=== PATIENT | female | born 1930 | race Two or more races ===

== ENCOUNTER 2017-11-19 20:44 | Inpatient (IN) | payer OTHER ==
[~2017-11-19] VITALS: Ht 157.5 cm; Wt 59.0 kg
--- NOTE | 2017-11-19 20:45 | NUR ---
TO BED 10 [facility] PARAMEDICS C/O NEAR SYNCOPE WHILE USING THE RESTROOM. PT HYPOTENSIVE PER EMS REPORT, GIVEN 250ML NS BOLUS. PT AAOX2 NO ACUTE DISTRESS NOTED, RESP EVEN AND UNLABORED. PT DENIES PAIN OR DISCOMFORT AT THIS TIME. PLACE PT ON CARDIAC MONITORING, CONTINUOUS POX. ER MD AT BEDSIDE TO EVAL PT WITH ORDERS RECEIVED. WILL CARRY OUT ORDERS.
[2017-11-19 21:16] LABS: BASOPHILS # (AUTO) 0.1 /CMM (0.0-0.2); BASOPHILS % (AUTO) 1.2 % (0.0-2.0); EOSINOPHILS # (AUTO) 0.2 /CMM (0.0-0.7); EOSINOPHILS % (AUTO) 3.1 % (0.0-6.0); HEMATOCRIT 37 % (33-45); HEMOGLOBIN 12.5 g/dL (11.5-14.8); LYMPHOCYTES # (AUTO) 0.9 /CMM (0.8-4.8); LYMPHOCYTES % (AUTO) 17.4 % (20.0-44.0); MEAN CORPUSCULAR HEMOGLOBIN 33 PG (26.0-33.0); MEAN CORPUSCULAR HGB CONC 34 g/dl (31.0-36.0); MEAN CORPUSCULAR VOLUME 95 fL (82-100); MONOCYTES # (AUTO) 0.3 /CMM (0.1-1.30); MONOCYTES % (AUTO) 6.4 % (2.0-12.0); NEUTROPHILS # (AUTO) 3.8 /CMM (1.8-8.9); NEUTROPHILS % (AUTO) 71.9 % (43.0-81.0); PLATELET COUNT (AUTO) 192 /CMM (150-450); RED BLOOD CELL COUNT(AUTO) 3.85 MIL/uL (4.0-5.2); WHITE BLOOD COUNT (AUTO) 5.3 K/uL (4.3-11.0)
--- NOTE | 2017-11-19 21:24 | NUR ---
RADDIOLOGY AT BEDSIDE FOR CHEST XRAY.
[2017-11-19 21:26] LABS: CALCIUM, SERUM 8.7 mg/dL (8.5-10.1); CARBON DIOXIDE 26 mmol/L (21-32); CHLORIDE 101 mmol/L (98-107); CREATININE 0.8 mg/dL (0.6-1.3); GLUCOSE 107 mg/dL (74-106); POTASSIUM 4.2 mmol/L (3.5-5.1); SODIUM SERUM 133 mmol/L (136-145); UREA NITROGEN, BLOOD 17 mg/dL (7-18)
[2017-11-19] MEDS ORDERED: IV NS 0.9% 500 ML BAG IV ONE (21:30)
[2017-11-19 21:35] LABS: TROPONIN I < 0.017 ng/mL (0.00-0.056)
--- NOTE | 2017-11-19 22:02 | NUR ---
PT RESTING IN BED. ON MONITOR W/ STABLE VITALS. WILL CONTINUE TO MONITOR.
--- NOTE | 2017-11-19 22:03 | NUR ---
DR BISHOP AT BEDSIDE FOR EVAL.
[2017-11-19 22:14] LABS: BAND % (MANUAL) 7 % (0.0-5.0); EOSINOPHILS % (MANUAL) 2 % (0-4); LYMPHOCYTES % (MANUAL) 13 % (16-48); MONOCYTES % (MANUAL) 9 % (0-11.0); NEUTROPHILS % (MANUAL) 68 (42-76); REACTIVE LYMPHOCYTES 1 % (0-0)
--- NOTE | 2017-11-19 22:30 | NUR ---
CALLED [facility], WAITING FOR A CALL FROM A [place]
--- NOTE | 2017-11-19 22:39 | NUR ---
JOSE MANUEL HUBBARD CALLED, ON THE PHONE WITH DR BISHOP.
[2017-11-20] VITALS (8 sets, daily range): BP systolic 131–180; BP diastolic 63–81
--- NOTE | 2017-11-20 | NUR ---
REPORT GIVEN TO ASTRID MINAYA. PT AWAITING TRANSFER TO FLOOR.
[2017-11-20] MEDS ORDERED: ACET-868 PO (00:11)
[2017-11-20] MEDS ORDERED: SERT25TA PO (00:11)
[2017-11-20] MEDS ORDERED: ATEN25TA PO (00:11)
[2017-11-20] MEDS ORDERED: ASPI-605 PO (00:11)
--- NOTE | 2017-11-20 01:20 | NUR ---
RN OPEN NOTES RECEIVED PATIENT FROM ER AWAKE IN BED WITH FAMILY AT BEDSIDE. A/O X2-3. NO SIGNS OF DISTRESS OR DISCOMFORT. BREATHING EVEN AND UNLABORED. IV ACCESS IN LFA PATENT AND INTACT, NO SIGNS OF REDNESS OR INFILTRATION. ORIENTED PATIENT TO UNIT AND ROOM. BED IN LOW LOCKED POSITION WITH SIDE RAILS X3. CALL LIGHT WITHIN REACH. WILL CONTINUE TO MONITOR.
[2017-11-20] MEDS ORDERED: ENOXAPARIN SODIUM 40 MG/0.4 ML DISP.SYRIN SQ SCH (03:30)
[2017-11-20] MEDS ORDERED: MAGNESIUM HYDROXIDE 30 ML UDC PO PRN (04:00)
[2017-11-20] MEDS ORDERED: Z GUARD REMEDY 2 OZ OINT TP PRN (04:00)
[2017-11-20] MEDS ORDERED: HYDROCODONE/APAP 5/325MG 1 EACH TABLET PO PRN (04:00)
[2017-11-20] MEDS ORDERED: ONDANSETRON HCL/PF 4 MG/2 ML VIAL IVP PRN (04:00)
[2017-11-20] MEDS ORDERED: ZOLPIDEM TARTRATE 5 MG TABLET PO PRN (04:00)
[2017-11-20] MEDS ORDERED: ACETAMINOPHEN 325 MG TABLET PO PRN (04:00)
[2017-11-20 04:29] LABS: BASOPHILS % (AUTO) 0.3 % (0.0-2.0); EOSINOPHILS % (AUTO) 1.4 % (0.0-6.0); HEMATOCRIT 34 % (33-45); MEAN CORPUSCULAR HEMOGLOBIN 34 PG (26.0-33.0); MEAN CORPUSCULAR HGB CONC 35 g/dl (31.0-36.0); MEAN CORPUSCULAR VOLUME 96 fL (82-100); MONOCYTES # (AUTO) 0.4 /CMM (0.1-1.30); MONOCYTES % (AUTO) 10.9 % (2.0-12.0); NEUTROPHILS # (AUTO) 2.1 /CMM (1.8-8.9); NEUTROPHILS % (AUTO) 60.4 % (43.0-81.0); PLATELET COUNT (AUTO) 189 /CMM (150-450); RDW COEFFICIENT OF VARIATION 11.9 (11.5-15.0); RED BLOOD CELL COUNT(AUTO) 3.56 MIL/uL (4.0-5.2); WHITE BLOOD COUNT (AUTO) 3.5 K/uL (4.3-11.0)
[2017-11-20 04:55] LABS: CALCIUM, SERUM 8.4 mg/dL (8.5-10.1); CARBON DIOXIDE 27 mmol/L (21-32); CHLORIDE 101 mmol/L (98-107); CREATININE 0.6 mg/dL (0.6-1.3); GLUCOSE 90 mg/dL (74-106); MAGNESIUM 1.8 mg/dL (1.8-2.4); PHOSPHORUS 3.3 mg/dL (2.5-4.9); POTASSIUM 3.8 mmol/L (3.5-5.1); SODIUM SERUM 135 mmol/L (136-145); UREA NITROGEN, BLOOD 15 mg/dL (7-18)
[2017-11-20 04:58] LABS: CHOLESTEROL 131 mg/dL (<200); HDL CHOLESTEROL 51 mg/dL (40-60); LDL 72 mg/dL (0-99); TRIGLYCERIDES 67 mg/dL (30-150)
--- NOTE | 2017-11-20 06:40 | NUR ---
RN CLOSING NOTES PATIENT RESTING IN BED, EASILY AROUSABLE. A/O X2-3. NO SIGNS OF DISTRESS OR DISCOMFORT. BREATHING EVEN AND UNLABORED. IV ACCESS IN LFA PATENT AND INTACT, NO SIGNS OF REDNESS OR INFILTRATION. ALL NEEDS MET. NO SIGNIFICANT CHANGES THROUGH THE NIGHT. BED IN LOW LOCKED POSITION WITH SIDE RAILS X3. CALL LIGHT WITHIN REACH. WILL ENDORSE TO AM SHIFT FOR YON.
--- NOTE | 2017-11-20 07:30 | NUR ---
TELE/RN OPENING NOTE PATIENT RECEIVED IN BED AWAKE. ALERT AND ORIENTED X2. REDIRECTION AND REORIENTATION PROVDIED. RESPIRATION REGULAR AND UNLABORED. DENIES SOB, PAIN AT THIS TIME. IN NO APPARENT DISTRESS. LFA G18 PATENT. SIDE RAIL X2 UP. BED LOW AND LOCKED. CALL LIGHT WITHIN REACH. WILL CONTINUE TO MONITOR.
[2017-11-20] MEDS: ATENOLOL 25 MG TABLET PO SCH (09:27)
[2017-11-20] MEDS: ASPIRIN EC 81 MG TABLET.DR PO SCH (09:27)
[2017-11-20] MEDS: ACETAMINOPHEN 325 MG TABLET PO SCH ×3 (09:28→16:47)
[2017-11-20] MEDS: ENOXAPARIN SODIUM 40 MG/0.4 ML DISP.SYRIN SQ SCH (09:29)
[2017-11-20] MEDS ORDERED: SERTRALINE HCL 25 MG TABLET PO SCH (18:00)
--- NOTE | 2017-11-20 18:09 | NUR ---
MS/RN CLOSING NOTE PATIENT AWAKE, ALERT AND ORIENTED X3 WITH EPISODES OF FORGETFULNESS. REMINDERS PROVIDED. RESPIRATION REGULAR AND UNLABORED. DENIES SOB, PAIN AT THIS TIME. IN NO APPARENT DISTRESS AT THIS TIME. GOOD AND GENTLE SKIN CARE RENDERED. KEPT CLEAN, DRY AND COMFORTABLE. MAMI BEING UP ON CHAIR, DAUGHTER BY THE BEDSIDE. ASSIST BACK TO BED DINNER TIME. SIDE RAIL X2 UP. BED LOW AND LOCKED. ALARM ON. CALL LIGHT WITHIN REACH. WILL ENDORSE TO ANALYSIS MGR.
--- NOTE | 2017-11-20 19:30 | NUR ---
RN OPEN NOTES RECEIVED PATIENT AWAKE IN BED. A/O X2-3. NO SIGNS OF DISTRESS OR DISCOMFORT. BREATHING EVEN AND UNLABORED. IV ACCESS IN LFA PATENT AND INTACT, NO SIGNS OF REDNESS OR INFILTRATION. BED IN LOW LOCKED POSITION WITH SIDE RAILS X3. CALL LIGHT WITHIN REACH. WILL CONTINUE TO MONITOR.
--- NOTE | 2017-11-21 07:35 | NUR ---
RN OPENING NOTES RECEIVED PT. PT IS STABLE AND RESTING IN BED. A/OX3 HOWEVER PT APPEARS TO HAVE A FLAT AFFECT. NO S/S OF RESPIRATORY DISTRESS OR SOB. PT DENIES PAIN AT THIS TIME. PER MD NOTE, PT MAY BE DC TODAY 11/21/17. WILL CONTINUE TO MONITOR.
[2017-11-21 07:45] LABS: BASOPHILS % (AUTO) 0.6 % (0.0-2.0); EOSINOPHILS # (AUTO) 0.2 /CMM (0.0-0.7); EOSINOPHILS % (AUTO) 5.1 % (0.0-6.0); HEMATOCRIT 36 % (33-45); HEMOGLOBIN 12.4 g/dL (11.5-14.8); LYMPHOCYTES # (AUTO) 0.6 /CMM (0.8-4.8); LYMPHOCYTES % (AUTO) 16.6 % (20.0-44.0); MEAN CORPUSCULAR HEMOGLOBIN 34 PG (26.0-33.0); MEAN CORPUSCULAR HGB CONC 35 g/dl (31.0-36.0); MEAN CORPUSCULAR VOLUME 97 fL (82-100); MONOCYTES # (AUTO) 0.3 /CMM (0.1-1.30); MONOCYTES % (AUTO) 9.3 % (2.0-12.0); NEUTROPHILS # (AUTO) 2.4 /CMM (1.8-8.9); NEUTROPHILS % (AUTO) 68.4 % (43.0-81.0); PLATELET COUNT (AUTO) 200 /CMM (150-450); RDW COEFFICIENT OF VARIATION 12.8 (11.5-15.0); WHITE BLOOD COUNT (AUTO) 3.5 K/uL (4.3-11.0)
[2017-11-21 08:00] VITALS: BP 174/69
[2017-11-21 08:42] LABS: CALCIUM, SERUM 8.7 mg/dL (8.5-10.1); CARBON DIOXIDE 27 mmol/L (21-32); CHLORIDE 101 mmol/L (98-107); CREATININE 0.6 mg/dL (0.6-1.3); GLUCOSE 88 mg/dL (74-106); MAGNESIUM 1.8 mg/dL (1.8-2.4); PHOSPHORUS 3.1 mg/dL (2.5-4.9); POTASSIUM 3.8 mmol/L (3.5-5.1); SODIUM SERUM 135 mmol/L (136-145); UREA NITROGEN, BLOOD 9 mg/dL (7-18)
[2017-11-21 09:41] VITALS: BP 174/69
[2017-11-21] MEDS: ASPIRIN EC 81 MG TABLET.DR PO SCH (09:41)
[2017-11-21] MEDS: ATENOLOL 25 MG TABLET PO SCH (09:41)
[2017-11-21] MEDS: ACETAMINOPHEN 325 MG TABLET PO SCH (09:42)
[2017-11-21] MEDS: ENOXAPARIN SODIUM 40 MG/0.4 ML DISP.SYRIN SQ SCH (10:00)
--- NOTE | 2017-11-21 13:25 | NUR ---
BATTERY MECHANIC NOTE PT DISCHARGED TO [facility]. VSS, NO S/S OF SOB OR RESPIRATORY DISTRESS, PT DENIES ANY PAIN. DISCHARGE INSTRUCTIONS REVIEWED WITH PT AND DAUGHTER, SIGNED BY DAUGHTER. BELONGINGS LIST SIGNED BY DAUGHTER, BOTH DOCUMENTS COPIED AND PLACED IN CHART.PICTURES TAKEN OF BLE AND BUE WOUNDS WELL FACIAL LAC. PICTURES PLACED IN CHART. NO NEW PRESCRIPTIONS. IV ACCESS AND ID BAND BOTH REMOVED. PT LEFT HOSPITAL IN PRIVATE VEHICLE ACCOMPANIED BY DAUGHTER.
== END 2017-11-21 19:00 | DRG 641 ==
LOC: ER 20:45 → TELE 23:54 → MED 11-20 15:29
PROVIDERS: ADMIT Nurse Practitioner Acute Care; ATTEND Nurse Practitioner Acute Care
DX: E86.0 Dehydration (principal); I48.91 Unspecified atrial fibrillation; F03.90 Unspecified dementia, unspecified severity, without behavioral disturbance, psychotic disturbance, mood disturbance, and anxiety; E87.1 Hypo-osmolality and hyponatremia; I95.1 Orthostatic hypotension; Z90.49 Acquired absence of other specified parts of digestive tract; I10 Essential (primary) hypertension; Z79.01 Long term (current) use of anticoagulants; R94.31 Abnormal electrocardiogram [ECG] [EKG]
CPT/HCPCS: 36415; 70450-TC; 71045; 80048-TC; 80061-TC; 83735-TC; 84100-TC; 84484-TC; 85025-TC; 87081-TC; 93307-TC; 93880-TC; A4606; J1650; Z7610

== ENCOUNTER 2018-03-05 17:05 | Emergency (ER) | payer OTHER ==
[~2018-03-05] VITALS: Ht 165.1 cm; Wt 70.3 kg
[~2018-03-05 17:05] MED LIST: ACET-868 PO; ASPI-605 PO; ATEN25TA PO; SERT25TA PO
[2018-03-05] MEDS ORDERED: TDAP [DIPH/PERTUSSIS/TET] 0.5 ML VIAL IM ONE (20:00)
[2018-03-05 20:02] VITALS: BP 138/78
== END 2018-03-05 20:04 | disposition home or self-care (01) ==
LOC: ER 17:09
DX: S01.01XA Laceration without foreign body of scalp, initial encounter (principal); I10 Essential (primary) hypertension; I48.91 Unspecified atrial fibrillation; Z79.82 Long term (current) use of aspirin; Z85.3 Personal history of malignant neoplasm of breast; Z85.42 Personal history of malignant neoplasm of other parts of uterus; Z60.2 Problems related to living alone; W01.198A Fall on same level from slipping, tripping and stumbling with subsequent striking against other object, initial encounter; Y93.89 Activity, other specified; Y92.89 Other specified places as the place of occurrence of the external cause; Y99.8 Other external cause status
CPT/HCPCS: 70450-TC; A4606; A6402; A6403; Z7610